=== PATIENT | female | born 1940 | race African-American/Black ===

== ENCOUNTER 2021-12-12 01:26 | Emergency (ER) | payer OTHER ==
[~2021-12-12] VITALS: Ht 152.4 cm; Wt 86.0 kg
[2021-12-12 01:35] VITALS: BP 147/90
== END 2021-12-12 03:39 | disposition left against medical advice (07) ==
LOC: ER 01:26
DX: Z53.21 Procedure and treatment not carried out due to patient leaving prior to being seen by health care provider (principal)

== ENCOUNTER 2023-09-24 22:40 | Emergency (ER) | payer OTHER ==
[~2023-09-24] VITALS: Ht 175.3 cm; Wt 95.0 kg
[2023-09-24 22:48] VITALS: O2SAT 95
[2023-09-24 23:58] LABS: BASOPHILS % 0.8 % (0.0-2.0); DIFFERENTIAL COMMENT 0; HEMATOCRIT. 40.1 % (36.0-48.0); HEMOGLOBIN. 13.4 g/dL (12.0-16.0); LYMPHOCYTES % 25.4 % (20.0-50.0); MEAN CORPUSCULAR HEMOGLOBIN 25.6 pg (28.0-32.0); MEAN CORPUSCULAR HGB CONC 33.5 g/dL (31.0-37.0); MEAN CORPUSCULAR VOLUME 76.3 fL (81.0-99.0); MEAN PLATELET VOLUME 7.8 fl (7.4-10.4); NEUTROPHILS % 62.8 % (40.0-76.0); PLATELET 241 x1000/uL (130-400); RED BLOOD CELL COUNT 5.25 mill/uL (4.2-5.4); RED CELL DISTRIBUTION WIDTH 16.1 % (11.6-14.6); WHITE BLOOD COUNT 9.7 x1000/uL (4.5-11.0)
[2023-09-25 00:06] LABS: INR 0.9; PARTIAL THROMBOPLASTIN TIME 29.5 sec (23.4-31.0); PROTHROMBIN TIME 10.3 sec (9.6-11.0)
[2023-09-25 02:43] LABS: ALANINE AMINOTRANSFERASE 19 IU/L (10-49); ALBUMIN 4.1 g/dL (3.2-4.8); ASPARTATE AMINOTRANSFERASE 23 IU/L (<34); BILIRUBIN TOTAL 0.3 mg/dL (0.1-1.0); CALCIUM 9.8 mg/dL (8.7-10.4); CARBON DIOXIDE 27 mEq/L (21-32); CHLORIDE 107 mEq/L (98-107); CREATININE 0.7 mg/dL (0.6-1.0); ETHANOL BLOOD < 10 mg/dL (<10); GLUCOSE 142 mg/dL (70-105); PHOSPHORUS 3.2 mg/dL (2.5-4.9); POTASSIUM 3.9 mEq/L (3.5-5.1); PROTEIN TOTAL 6.5 g/dL (6.0-8.3); SODIUM 142 mEq/L (136-145); UREA NITROGEN BLOOD 13 mg/dL (9-23)
[2023-09-25 02:45] LABS: TROPONIN I HIGH SENSITIVITY < 4 ng/L (3.0-34)
[2023-09-25 04:36] VITALS: TEMP 98
[2023-09-25 05:09] LABS: TROPONIN I HIGH SENSITIVITY < 4 ng/L (3.0-34)
[2023-09-25 06:04] VITALS: BP 125/73; PULSE 70; RESP 24
== END 2023-09-25 07:21 | disposition home or self-care (01) ==
LOC: ER 22:40
DX: R07.9 Chest pain, unspecified (principal); R00.2 Palpitations; F32.A Depression, unspecified; I10 Essential (primary) hypertension; I25.2 Old myocardial infarction; J45.901 Unspecified asthma with (acute) exacerbation; Z88.8 Allergy status to other drugs, medicaments and biological substances
CPT/HCPCS: 36415; 71045; 80053; 80320; 83735; 83880; 84100; 84484; 85025; 93005; 99285; G0480